=== PATIENT | male | born 1965 | race Caucasian/White ===

== ENCOUNTER 2019-02-09 06:09 | Inpatient (IN) | payer OTHER ==
[2019-01-17 12:19] VITALS: BMI 35.4
[2019-02-09] MEDS ORDERED: CEFAZOLIN 2 GM/D5W 2 GM/50 ML ML IVPB ONE (06:17)
[2019-02-09] MEDS ORDERED: VANCOMYCIN 1,000 MG in DEXTROSE 5%-WATER - 250 ML IVPB ONE (06:17)
[2019-02-09] MEDS ORDERED: TRANEXAMIC ACID 1000 MG/10 ML VIAL IVPUSH ONE (06:17)
[2019-02-09] MEDS ORDERED: MIDAZOLAM HCL 2 MG/2 ML SINGLE DOSE VIAL ONE ×3 (07:07→09:53)
[2019-02-09] MEDS ORDERED: BUPIVACAINE LIPOSOME/PF (EXPAREL) 266 MG/20 ML VIAL ONE (07:08)
[2019-02-09] MEDS ORDERED: SODIUM CHLORIDE 0.9% P/F 10 ML VIAL IJ ONE (07:08)
--- NOTE | 2019-02-09 07:45 | HP ---
History & Physical Update - History History: No Change - Physical Physical: No Change - Assessment Assessment: No Change - Plan Plan: No Change
[2019-02-09] MEDS ORDERED: SUCCINYLCHOLINE CHLORIDE 200 MG/10 ML SYRINGE ONE (08:10)
[2019-02-09] MEDS ORDERED: ePHEDrine SULFATE 50 MG/1 ML AMPULE ONE (08:10)
[2019-02-09] MEDS ORDERED: PROPOFOL 20 ML ONE (08:10)
[2019-02-09] MEDS ORDERED: ONDANSETRON 4 MG/2 ML VIAL ONE (08:35)
[2019-02-09] MEDS ORDERED: VANCOMYCIN 1,000 MG VIAL (RESTRICTED TO ID ONLY) ONE (08:35)
[2019-02-09] MEDS ORDERED: TRANEXAMIC ACID 1000 MG/10 ML VIAL ONE (08:35)
[2019-02-09] MEDS ORDERED: DEXAMETHASONE SOD PHOSPHATE 4 MG/1 ML VIAL ONE (08:35)
[2019-02-09] MEDS ORDERED: ceFAZolin SODIUM 1 GM VIAL ONE (08:35)
--- NOTE | 2019-02-09 10:42 | PN ---
Progress Note (short form) - Note Progress Note: 53M s/p RIGHT total knee replacement POD #0. -Pain control. -DVT PPx: -Chemical: ASA 81mg PO BID x 6 weeks. -Mechanical: VESTA's, SCD's. -Incentive spirometry q15 min. -PT/OT/Rehab, OOB. -WBAT RLE. -Antibiotics: Ancef q6h x 3 post op doses. -f/u post-op trial of void. -f/u drain output. -Diet as tolerated. -Keep dressing clean & dry. -Care per medical hospitalist team. -f/u [facility] [place] office Thu02/18/2019; call for appointment; . -Will follow. Kameron Thorne MD (Orthopaedic Surgery).
[2019-02-09] MEDS ORDERED: MAG HYDROX/AL HYDROX/SIMETH 30 ML UNIT-DOSE CUP PO PRN (10:43)
[2019-02-09] MEDS ORDERED: ONDANSETRON 4 MG/2 ML VIAL IVPUSH PRN ×3 (10:43→16:15)
[2019-02-09] MEDS ORDERED: MAGNESIUM HYDROX 2400MG/30ML ORAL SUSPENSION 30 ML CUP PO PRN (10:43)
[2019-02-09] MEDS ORDERED: LACTATED RINGERS SOLUTION 1,000 ML IV SCH (10:45)
--- NOTE | 2019-02-09 10:45 | OP ---
Operative Note - Note: Operative Date: 02/09/19 Pre-Operative Diagnosis: Right knee tricompartment OA Operation: Right TKA Implants: Katherine [employer]lon. Femur - 5. Tibia - 6. Poly - 11mm, PS. Patella - 27mm, symmetric Post-Operative Diagnosis: Same as Pre-op Surgeon: Kameron Thorne Clinical Documentation Improvement Specialist: Danny Thorne Anesthesiologist/CEMENTER HELPER: Uday Tyson Anesthesia: Spinal Estimated Blood Loss (mls): 0 Drains & Tubes with Location: 1 x deep HemoVac Fluid Volume Replaced (mls): 700 (Crystalloid) Operative Report Dictated: Yes
[2019-02-09] MEDS ORDERED: PROMETHAZINE HCL 25 MG/1 ML VIAL IVPUSH PRN (11:05)
[2019-02-09] MEDS ORDERED: oxyCODONE HCL 5 MG TABLET PO PRN (11:05)
[2019-02-09] MEDS: ACETAMINOPHEN 325 MG TABLET (FP) PO SCH ×3 (11:57→17:12)
[2019-02-09] MEDS ORDERED: ACETAMINOPHEN 325 MG TABLET (FP) ONE (11:59)
[2019-02-09] MEDS: oxyCODONE HCL 5 MG TABLET PO PRN ×2 (15:05→20:00)
[2019-02-09] MEDS ORDERED: KETOROLAC TROMETHAMINE 30 MG/1 ML VIAL IVPUSH PRN (16:13)
[2019-02-09] MEDS: CEFAZOLIN 2 GM/D5W 2 GM/50 ML ML IVPB SCH ×2 (16:32→21:04)
[2019-02-09] MEDS: HYDROmorphone HCL CARPU-JECT 1 MG/1 ML DISP.SYRIN IVPB PRN (17:12)
[2019-02-09] MEDS: ASPIRIN 81 MG CHEWABLE TABLETS PO SCH (21:04)
[2019-02-09] MEDS: oxyCODONE HCL 10 MG SUSTAINED ACTING TABLET PO SCH (21:04)
[2019-02-09] MEDS: SENNOSIDES/DOCUSATE COMBO (SENNA PLUS) TABLET (UD) PO SCH (21:05)
--- NOTE | 2019-02-09 23:37 | OP ---
DATE OF OPERATION: 02/09/2019 SURGEON: Kameron Thorne M.D. SHOEMAKER APPRENTICE: Danny Thorne M.D., Giuliano Dsouza PREOPERATIVE DIAGNOSIS: Tricompartment osteoarthritis right knee with fixed flex deformity 10 degrees. POSTOPERATIVE DIAGNOSIS: Tricompartment osteoarthritis right knee with fixed flex deformity 10 degrees. OPERATING PERFORMED: Right posterior stabilized total knee arthroplasty ( [place] cemented posterior stabilized). ANESTHESIA: Spinal anesthesia with conscious sedation and peripheral nerve block. ANTIBIOTICS GIVEN: 2 g Kefzol, 1 g vancomycin preoperative; 1 g Kefzol given at the end of the procedure. TOURNIQUET TIME: 90 minutes. OPERATION DETAILS: The patient was correctly identified, brought in operating room. Right lower extremity was prepped, draped in the routine manner with Betadine scrub solution, wiped off with alcohol, DuraPrep applied. Midline incision utilized. Dissection was taken through the skin and subcutaneous tissue to the quadriceps mechanism. The epimysium of the vastus medialis was dissected off the actual muscle. The proximal tibia cut was made alongside the medial tibial tubercle, extended up, coursing around to the back of the femur linea aspera leaving one inch of soft tissue as a cuff to repair later. The muscle was taken off the intermuscular septum in the confines of the stripping angle. No disturbance of the vascular bundle performed. On subluxation of the patella laterally, tricompartmental arthropathy noted. The first cut of the tibia, using the extramedullary device of Ombud, this is cut to mutual 90 degrees to the surface of the plateau. Measurement of the plateau was for a size 6 component. 2-mm resection of the tibia performed. The distal femoral cut was at 10 mm, that means 2 mm proximalization of the joint line because of his fixed flexion deformity. The appropriate jigs were all seated to receive a size 5 femoral component. All the block cuts were completed. The trialing components set perfectly well. The flexion, extension gaps were measured at 11 mm. The menisci were appropriately resected. The patella was cut using Darien line, that is from patellar ligament to quadriceps tendon. The femoral jig seating took into account the epicondylar axis and Darien line in the intracondylar notch intraocular groove. The bone was thoroughly lavaged with pulse [id number] MTDD
[2019-02-10] MEDS: CEFAZOLIN 2 GM/D5W 2 GM/50 ML ML IVPB SCH (03:16)
[2019-02-10] MEDS: ACETAMINOPHEN 325 MG TABLET (FP) PO SCH ×3 (06:05→12:17)
--- NOTE | 2019-02-10 07:05 | PN ---
Progress Note (short form) - Note Progress Note: Surgery 53M POD #1 RIGHT total knee replacement Patient seen and examined at bedside with no complaints. Patient is tolerating his diet and has been OOb to chair and his Pain is controlled. He denies any CP , SOB, N/V, fever or chills. Vital Signs Temp 97.9 F 02/10/19 06:00 Pulse 82 02/10/19 06:00 Resp 18 02/10/19 06:00 BP 136/63 02/10/19 06:00 Pulse Ox 97 02/10/19 06:00 Intake & Output 02/09/19 02/09/19 02/10/19 11:59 23:59 11:59 Intake Total 800 Output Total 1830 1060 Balance 800 -1830 -1060 Weight 219 lb 12.8 oz Intake: IV 800 Output: Drainage 330 60 Right Knee 330 60 Urine 1500 1000 Void 1500 1000 Other: Voiding Method Urinal Urinal Height 5 ft 6 in Body Mass Index (BMI) 35.4 Weight Measurement Method Standing Scale CBC, BMP 02/10/19 07:20 02/10/19 07:20 PE: A&Ox3, NAD unlabored resp on RA Right LE dressing c/d/i with drain secure in good position and draining. ROM from 0-60 degrees. Right LE compartment with diffuse edema and midly ttp- appropriate to status, +2 DP pulse. Left LE compartments soft, supple and non-tender with +2 DP pulses. Problem List - Problems (1) S/P total knee replacement Assessment/Plan: POD #1 Right TKA patient doing well. -Pain control. -DVT PPx: -Chemical: ASA 81mg PO BID x 6 weeks. -Mechanical: VESTA's, SCD's. -Incentive spirometry q15 min. -PT/OT/Rehab, OOB. -WBAT RLE. -Antibiotics: Ancef q6h x 3 post op doses. -f/u post-op trial of void. -f/u drain output. -Diet as tolerated. -Keep dressing clean & dry. -Care per medical hospitalist team. -f/u [facility] [place] office Thu02/18/2019; call for appointment; . -Will follow. Code(s): Z96.659 - PRESENCE OF UNSPECIFIED ARTIFICIAL KNEE JOINT
[2019-02-10 08:23] LABS: BASO % 0.2 % (0-2.0); EOS % 0.2 % (0-4.5); HEMATOCRIT 39.7 % (35.4-49); HEMOGLOBIN 13.4 GM/dl (11.7-16.9); LYMPH % 12.7 % (8-40); MCH 28.7 pg (25.7-33.7); MCHC 33.7 g/dl (32.0-35.9); MEAN CELL VOLUME 85.3 fl (80-96); MEAN PLT VOLUME 7.6 fl (7.5-11.1); MONO % 7.8 % (3.8-10.2); NEUT % 79.1 % (42.8-82.8); PLATELET COUNT 205 K/MM3 (134-434); RBC 4.66 M/mm3 (4.00-5.60); RDW 12.5 % (11.9-15.9); WHITE BLOOD COUNT 10.9 K/mm3 (4.0-10.8)
[2019-02-10 08:24] LABS: CALCIUM 8.1 mg/dl (8.5-10); CREATININE 0.8 mg/dl (0.55-1.3)
[2019-02-10] MEDS: oxyCODONE HCL 5 MG TABLET PO PRN ×3 (08:59→20:46)
[2019-02-10] MEDS: ASPIRIN 81 MG CHEWABLE TABLETS PO SCH ×2 (09:51→21:01)
[2019-02-10] MEDS: oxyCODONE HCL 10 MG SUSTAINED ACTING TABLET PO SCH ×2 (09:52→21:01)
[2019-02-10] MEDS: PANTOPRAZOLE 40 MG TABLET (FP) PO SCH (09:53)
[2019-02-10] MEDS: SENNOSIDES/DOCUSATE COMBO (SENNA PLUS) TABLET (UD) PO SCH ×2 (09:53→21:01)
--- NOTE | 2019-02-10 10:03 | PN ---
Progress Note, Physician Chief Complaint: s/p knee arthroplasty under spinal anesthesia History of Present Illness: adductor canal and popliteal block for post op pain control - Current Medication List Current Medications: Active Medications Acetaminophen (Tylenol -) 650 mg PO Q6H [facility] Stop: 02/12/19 11:59 Last Admin: 02/10/19 06:05 Dose: 650 mg Al Hydroxide/Mg Hydroxide (Mylanta Oral Suspension -) 30 ml PO Q4H PRN PRN Reason: DYSPEPSIA Aspirin (Asa -) 81 mg PO BID [facility] Last Admin: 02/10/19 09:51 Dose: 81 mg Fentanyl (Sublimaze Injection -) 50 mcg IVPUSH [id number] PRN PRN Reason: PAIN-PACU ORDER X 4 DOSES ONLY Hydromorphone HCl (Dilaudid Injection -) 1 mg IVPB Q6H PRN PRN Reason: PAIN Last Admin: 02/10/19 00:00 Dose: 1 mg Magnesium Hydroxide (Milk Of Magnesia -) 30 ml PO PRN PRN PRN Reason: CONSTIPATION Ondansetron HCl (Zofran Injection) 4 mg IVPUSH Q6H PRN PRN Reason: NAUSEA Ondansetron HCl (Zofran Injection) 4 mg IVPUSH Q6H PRN PRN Reason: NAUSEA Oxycodone HCl (Roxicodone -) 5 mg PO Q3H PRN PRN Reason: PAIN LEVEL 1-5 Oxycodone HCl (Roxicodone -) 10 mg PO Q3H PRN PRN Reason: PAIN LEVEL 6-10 Last Admin: 02/10/19 08:59 Dose: 10 mg Oxycodone HCl (Oxycontin -) 10 mg PO BID [facility] Stop: 02/12/19 11:06 Last Admin: 02/10/19 09:52 Dose: 10 mg Pantoprazole Sodium (Protonix -) 40 mg PO DAILY [facility] Last Admin: 02/10/19 09:53 Dose: 40 mg Promethazine HCl (Phenergan Injection -) 12.5 mg IVPUSH Q6H PRN PRN Reason: NAUSEA-FOR RESCUE AFTER 15 MIN Senna/Docusate Sodium (Pericolace -) 2 tablet PO BID [facility] Last Admin: 02/10/19 09:53 Dose: 2 tablet - Objective Vital Signs: Vital Signs Temperature 97.9 F 02/10/19 06:00 Pulse Rate 82 02/10/19 06:00 Respiratory Rate 18 02/10/19 06:00 Blood Pressure 136/63 02/10/19 06:00 O2 Sat by Pulse Oximetry (%) 97 02/10/19 06:00 Constitutional: Yes: Well Nourished Cardiovascular: Yes: WNL Respiratory: Yes: WNL Gastrointestinal: Yes: WNL Labs: CBC, BMP 02/10/19 07:20 02/10/19 07:20 Assessment/Plan pain controlled, no nausea or vomiting, dept of anesthesia will sign off case as no adverse anesthetic complications
--- NOTE | 2019-02-10 10:27 | HP ---
Admitting History and Physical - Admission Chief Complaint: Admitted for Rt knee arthroplasty History of Present Illness: 53 yrs old man obese BMI 35, Rt knee OS yesterday underwent Rt Knee arthroplasty , today evaluated POD-1, patient c/o mild pain able to participate in PT denies any chest pain, SOB, fever and chills no c/o nausea or vomiting. History Source: Patient - Smoking History Smoking history: Never smoked Have you smoked in the past 12 months: No - Alcohol/Substance Use Hx Alcohol Use: Yes (OCCASIONALLY) - Social History Usual Living Arrangement: Yes: With Spouse History of Recent Travel: No Home Medications - Allergies Allergies/Adverse Reactions: Allergies Allergy/AdvReac Type Severity Reaction Status Date / Time No Known Allergies Allergy Verified 01/17/19 12:03 - Home Medications Home Medications: Ambulatory Orders Naproxen Sodium [Aleve] 2 tab PO PRN PRN 01/17/19 Family Medical History Family Hx Cancer: Mother (Breast), Father (Brain) Review of Systems - Review of Systems Constitutional: denies: Chills, Diaphoresis, Fever, Lethargy Eyes: denies: Blind Spots, Blurred Vision, Double Vision, Eye Pain, Floaters HENT: denies: Difficult Swallowing, Ear Discharge, Ear Pain, Epistaxis Neck: denies: Decreased ROM, Lumps, Pain on Movement, Stiffness Cardiovascular: denies: Chest Pain, Edema, Palpitations, Shortness of Breath Respiratory: denies: Cough, Exercise Intolerance, Hemoptysis Gastrointestinal: denies: Abdominal Pain, Bloating, Constipation, Diarrhea, Dysphagia Genitourinary: denies: Burning, Discharge, Dysuria Musculoskeletal: reports: Joint Pain (Rt). denies: Back Pain Integumentary: denies: Blister, Bruising Neurological: denies: Change in LOC, Change in Speech, Confusion, Dizziness, Seizure, Syncope Endocrine: denies: Excessive Sweating, Flushing, Increased Hunger Psychiatric: denies: Altered Sleep Pattern, Anxiety, Depression, Hallucinations , Paranoia, Suicidal Pain Intensity: 5 Physical Examination Vital Signs: Vital Signs Temperature 97.9 F 02/10/19 06:00 Pulse Rate 82 02/10/19 06:00 Respiratory Rate 18 02/10/19 06:00 Blood Pressure 136/63 02/10/19 06:00 O2 Sat by Pulse Oximetry (%) 97 02/10/19 06:00 Middle aged M not in distress HEENT: mm moist, no anemia, PERRLA EOMI NECK: No JVD No Bruit CHEST: CTA B/L CVS: S1S2 R no m/g/r ABD: No distention, non tender Bs + EXT: Rt knee s/p arthropalsty , draigne at place, No edema feet SAUSAGE GRINDER: AOX3 non focal Labs: CBC, BMP 02/10/19 07:20 02/10/19 07:20 Problem List - Problems (1) S/P total knee replacement Assessment/Plan: POD-1 , pain control, ambulation as advised by PT/ortho. Problems reviewed: Yes Code(s): Z96.659 - PRESENCE OF UNSPECIFIED ARTIFICIAL KNEE JOINT Qualifiers: Laterality: right Qualified Code(s): Z96.651 - Presence of right artificial knee joint (2) Obesity (BMI 30-39.9) Assessment/Plan: Nutrition consult as out patient Problems reviewed: Yes Code(s): E66.9 - OBESITY, UNSPECIFIED Assessment/Plan Active Medications Acetaminophen (Tylenol -) 650 mg PO Q6H [facility] Stop: 02/12/19 11:59 Last Admin: 02/10/19 06:05 Dose: 650 mg Al Hydroxide/Mg Hydroxide (Mylanta Oral Suspension -) 30 ml PO Q4H PRN PRN Reason: DYSPEPSIA Aspirin (Asa -) 81 mg PO BID [facility] Last Admin: 02/10/19 09:51 Dose: 81 mg Fentanyl (Sublimaze Injection -) 50 mcg IVPUSH [id number] PRN PRN Reason: PAIN-PACU ORDER X 4 DOSES ONLY Hydromorphone HCl (Dilaudid Injection -) 1 mg IVPB Q6H PRN PRN Reason: PAIN Last Admin: 02/10/19 00:00 Dose: 1 mg Magnesium Hydroxide (Milk Of Magnesia -) 30 ml PO PRN PRN PRN Reason: CONSTIPATION Ondansetron HCl (Zofran Injection) 4 mg IVPUSH Q6H PRN PRN Reason: NAUSEA Ondansetron HCl (Zofran Injection) 4 mg IVPUSH Q6H PRN PRN Reason: NAUSEA Oxycodone HCl (Roxicodone -) 5 mg PO Q3H PRN PRN Reason: PAIN LEVEL 1-5 Oxycodone HCl (Roxicodone -) 10 mg PO Q3H PRN PRN Reason: PAIN LEVEL 6-10 Last Admin: 02/10/19 08:59 Dose: 10 mg Oxycodone HCl (Oxycontin -) 10 mg PO BID [facility] Stop: 02/12/19 11:06 Last Admin: 02/10/19 09:52 Dose: 10 mg Pantoprazole Sodium (Protonix -) 40 mg PO DAILY [facility] Last Admin: 02/10/19 09:53 Dose: 40 mg Promethazine HCl (Phenergan Injection -) 12.5 mg IVPUSH Q6H PRN PRN Reason: NAUSEA-FOR RESCUE AFTER 15 MIN Senna/Docusate Sodium (Pericolace -) 2 tablet PO BID [facility] Last Admin: 02/10/19 09:53 Dose: 2 tablet
[2019-02-10] MEDS: HYDROmorphone HCL CARPU-JECT 1 MG/1 ML DISP.SYRIN IVPB PRN ×2 (15:12)
[2019-02-11] MEDS: ACETAMINOPHEN 325 MG TABLET (FP) PO SCH ×4 (00:34→11:54)
[2019-02-11] MEDS: oxyCODONE HCL 5 MG TABLET PO PRN ×2 (05:35→09:29)
[2019-02-11 07:10] VITALS: BP 139/74; PULSE 94; TEMP 98.5
[2019-02-11 08:12] LABS: BASO % 0.3 % (0-2.0); EOS % 0.4 % (0-4.5); HEMATOCRIT 37.6 % (35.4-49); HEMOGLOBIN 12.7 GM/dl (11.7-16.9); LYMPH % 14.5 % (8-40); MCH 28.9 pg (25.7-33.7); MCHC 33.8 g/dl (32.0-35.9); MEAN CELL VOLUME 85.5 fl (80-96); MEAN PLT VOLUME 8.1 fl (7.5-11.1); MONO % 9.5 % (3.8-10.2); NEUT % 75.3 % (42.8-82.8); PLATELET COUNT 198 K/MM3 (134-434); RDW 12.6 % (11.9-15.9)
[2019-02-11 08:30] LABS: CREATININE 0.8 mg/dl (0.55-1.3); POTASSIUM 3.8 mmol/L (3.5-5.1)
--- NOTE | 2019-02-11 08:48 | PN ---
Progress Note (short form) - Note Progress Note: Surgery 53M POD #2 RIGHT total knee replacement Patient seen and examined at bedside with no complaints. Patient is tolerating his diet and has been OOb to chair and his Pain is controlled. He denies any CP , SOB, N/V, fever or chills. Vital Signs Temp 98.5 F 02/11/19 06:00 Pulse 94 H 02/11/19 06:00 Resp 20 02/11/19 06:00 BP 139/74 02/11/19 06:00 Pulse Ox 97 02/11/19 07:08 Intake & Output 02/10/19 02/10/19 02/11/19 11:59 23:59 11:59 Intake Total 1000 Output Total 1060 380 130 Balance -1060 620 -130 Intake: IVPB 100 Oral 900 Output: Drainage 60 180 30 Right Knee 60 180 30 Urine 1000 200 100 Void 1000 200 100 Other: Voiding Method Urinal Toilet CBC, BMP 02/11/19 07:25 02/11/19 07:25 PE: A&Ox3, NAD unlabored resp on RA Right LE dressing c/d/i, drain removed with tip fully intact and ostomy clean with no active bleeding. ROM from 0-90 degrees. Right LE compartment with diffuse edema, no tracking erythema or ecchymosis, and midly ttp- appropriate to status, +2 DP pulse. 5/5 dorsi/plantar flexion b/l Left LE compartments soft, supple and non-tender with +2 DP pulses. Problem List - Problems (1) S/P total knee replacement Assessment/Plan: POD #2 Right TKA patient doing well. -Pain control. -DVT PPx: -Chemical: ASA 81mg PO BID x 6 weeks. -Mechanical: VESTA's, SCD's. -Incentive spirometry q15 min. -PT/OT/Rehab, OOB. -WBAT RLE. -Antibiotics: Ancef q6h x 3 post op doses. -Diet as tolerated. -Keep dressing clean & dry. -Care per medical hospitalist team. -f/u [facility] [place] office Thu02/18/2019; call for appointment; . Code(s): Z96.659 - PRESENCE OF UNSPECIFIED ARTIFICIAL KNEE JOINT Qualifiers: Laterality: right Qualified Code(s): Z96.651 - Presence of right artificial knee joint
[2019-02-11] MEDS: SENNOSIDES/DOCUSATE COMBO (SENNA PLUS) TABLET (UD) PO SCH (09:28)
[2019-02-11] MEDS: ASPIRIN 81 MG CHEWABLE TABLETS PO SCH (09:28)
[2019-02-11] MEDS: oxyCODONE HCL 10 MG SUSTAINED ACTING TABLET PO SCH (09:29)
[2019-02-11] MEDS: PANTOPRAZOLE 40 MG TABLET (FP) PO SCH (09:29)
--- NOTE | 2019-02-11 12:31 | DS ---
"Physical Exam: SUBJECTIVE: Patient seen and examined, in no acute distress. denies pain. OBJECTIVE: patient is a 53 year old male is s/p POD #2 RIGHT total knee replacement Vital Signs Period Temp Pulse Resp BP Sys/Miller Pulse Ox Last 24 Hr 97.9 F-99.7 F 94-100 17-20 135-150/67-74 95-98 PHYSICAL EXAM GENERAL: The patient is awake, alert, and fully oriented, in no acute distress. HEAD: Normal with no signs of trauma. EYES: PERRL, extraocular movements intact, sclera anicteric, conjunctiva clear. ENT: Ears normal, nares patent, oropharynx clear without exudates, moist mucous membranes. NECK: Trachea midline, full range of motion, supple. LUNGS: Breath sounds equal, clear to auscultation bilaterally, no wheezes, no crackles, no accessory muscle use. HEART: Regular rate and rhythm, S1, S2 without murmur, rub or gallop. ABDOMEN: Soft, nontender, nondistended, normoactive bowel sounds, no guarding, no rebound, no hepatosplenomegaly, no masses. EXTREMITIES: s/p POD #2 RIGHT total knee replacement NEUROLOGICAL: Normal speech, gait not observed. PSYCH: Normal mood, normal affect. SKIN: Warm, dry, normal turgor, no rashes or lesions noted. LABS Laboratory Results - last 24 hr 02/11/19 02/11/19 02/11/19 07:25 07:25 09:50 WBC 11.0 H RBC 4.40 Hgb 12.7 Hct 37.6 MCV 85.5 MCH 28.9 MCHC 33.8 RDW 12.6 Plt Count 198 MPV 8.1 Absolute Neuts (auto) 8.4 Neutrophils % 75.3 Lymphocytes % 14.5 Monocytes % 9.5 Eosinophils % 0.4 D Basophils % 0.3 Sodium 132 L Potassium 3.8 Chloride 98 Carbon Dioxide 28 Anion Gap 6 L BUN 9.0 Creatinine 0.8 Est GFR (CKD-EPI)AfAm 117.38 Est GFR (CKD-EPI)NonAf 101.27 Random Glucose 142 H Hemoglobin A1c % 6.1 Calcium 8.0 L HOSPITAL COURSE: Date of Admission:02/09/19 Date of Discharge: 02/11/19 Minutes to complete discharge: 60 Discharge Summary Problems reviewed: Yes Reason For Visit: OSTEOARTHRITIS OF KNEES Current Active Problems Obesity (BMI 30-39.9) (Acute) S/P total knee replacement (Acute) Condition: Good - Instructions Diet, Activity, Other Instructions: Dr. Thorne Discharge Instructions for Knee Replacement Post Operative Instructions Physical activity Physical Therapist will come to your home for the first 5 days. You will be set up with outpatient PT at your first post-operative visit. Use assistive devices for ambulation at all times. Weight bearing as tolerated on your surgical side. Do not put pillow under knee. May put pillow under heel. Wound care Leave your surgical dressing in place. Do not change the dressing until seen by your surgeon in the office. No baths or showers. Do not submerge your incision. Do not apply any ointments or lotions to your incision. Please call the office if your dressing is soiled/dirty or is falling off. Apply Graduated Compression Stockings (TEDS) to both lower extremities - remove daily for hygiene ONLY. Diet There are no dietary restrictions. Eat healthy, high-fiber foods. Drink 6 to 8 glasses of liquid each day. This will assist in keeping your bowels are regular. Elevated blood sugars: We also noted that your blood sugars were elevated during your hospital stay. Please follow up with your PCP. Your hmga1c was 6.1 which puts you on the borderline for early or pre diabetes. Pain management Any pain prescription medication ordered should be taken as prescribed for moderate to severe pain. Do not take additional Tylenol while taking Percocet. Take Aspirin 81 mg two times a day for a total of 6 weeks to prevent blood clots. Call Dr. Thorne for any of the following: Severe pain not relieved by medication Fever of 101 or higher Excessive bleeding or drainage on dressing Inability to urinate If you experience chest pain or shortness of breath, please seek emergency care immediately. ISTOP: Rx Written Rx Dispensed Drug Quantity Days Supply Prescriber Name 01/20/2019 01/21/2019 tramadol hcl 50 mg tablet 14 7 Kameron Thorne MS, MD This report was requested by: Simi Rader | Reference #: [id number] Please call the office at to confirm your post-op appointment for the week following surgery. Disposition: HOME - Home Medications Comprehensive Discharge Medication List: Ambulatory Orders Acetaminophen [Tylenol .Regular Strength -] 650 mg PO Q6H tablet 02/11/19 Aspirin [ASA -] 81 mg PO BID tab.chew 02/11/19 Docusate Sodium [Colace] 100 mg PO TID PRN #30 capsule 02/11/19 Oxycodone HCl/Acetaminophen [Percocet 5-325 mg Tablet] 1 - 2 tab PO Q4H PRN #30 tablet MDD 12 02/11/19 Problem List - Problems (1) Pre-diabetes Assessment/Plan: outpatient follow up borderline @ 6.l% hmga1c. Code(s): R73.03 - PREDIABETES This patient is new to me today: Yes Date on this admission: 02/11/19 Emergency Visit: Yes ED Registration Date: 02/09/19 Care time: The patient presented to the Emergency Department on the above date and was hospitalized for further evaluation of their emergent condition. Critical Care patient: No - Discharge Referral Referred to [facility] Med P.C.: No"
--- NOTE | 2019-02-15 12:10 | PATH ---
Surgical Pathology Report Patient Name: JORGE CRUZ Med. Rec. #: [id number] /Age/Gender: 1965 (Age: 53) / M Account: [id number] Location: [facility] MED-SURG Taken: 02/09/2019 Received: 02/09/2019 Reported: 02/15/2019 Physicians: Kameron Thorne M.D. Specimen(s) Received RIGHT KNEE BONES Clinical History Osteoarthritis right knee Final Diagnosis BONES, RIGHT KNEE, TOTAL KNEE REPLACEMENT: DEGENERATIVE JOINT DISEASE. Electronically Signed Audrey Montanez M.D. Gross Description Received in formalin labeled "bones right knee," is a 12.0 x 9.0 x 1.5 cm aggregate of multiple portions of bone and soft tissue. The tibial plateau measures 8.0 x 5.7 x 1.7 cm. There is a 1.0 cm in greatest dimension area of eburnation present. The remaining articular surfaces are smith-yellow and focally granular. The underlying trabecular bone is yellow and hard. Master Planner sections are submitted in one cassette, following decalcification. /02/10/2019 [facility]02/10/2019
== END 2019-02-11 13:25 | disposition home or self-care (01) | DRG 470 ==
LOC: FM/S 06:09
PROVIDERS: ADMIT Orthopaedic Surgery Orthopaedic Surgery of the Spine; ATTEND Nurse Practitioner Family
PROC: 0SRC0J9 Replacement of Right Knee Joint with Synthetic Substitute, Cemented, Open Approach (ICD-10-PCS; principal; 2019-02-09 08:58)
DX: M17.11 Unilateral primary osteoarthritis, right knee (principal); E66.9 Obesity, unspecified; Z68.35 Body mass index [BMI] 35.0-35.9, adult; R73.03 Prediabetes
CPT/HCPCS: 36415; 73560-TC-RT-FY; 80048; 83036; 85025; 88304-TC; 88311-TC; 94760; 97116-GP; 97163-GP